=== PATIENT | female | born 1965 | race Caucasian/White ===

== ENCOUNTER → 2018-12-04 17:13 | Outpatient (CLI) | payer OTHER, SELFPAY ==
--- NOTE | 2018-12-04 17:16 | DI.RAD.S_ITS ---
PROCEDURE: XR FOOT LT MIN 3V INDICATIONS: LEFT HEEL PAIN S/P FALL FROM TRUCK ON 09/22/18, GETTING WORS TECHNIQUE: 3 views of the foot were acquired. COMPARISON: None. FINDINGS: Bones: No fractures or dislocations. No suspicious bony lesions. Mild hallux valgus deformity noted. Small bunion noted. Mild midfoot osteoarthritis. Soft tissues: No tibiotalar joint effusion. Achilles tendon appears normal. IMPRESSION: No fracture. No acute osseous lesion. If there are persistent symptoms or clinical suspicion for pathology, then repeat radiographs in 7-10 days or advanced imaging (CT, MRI or bone scan) should be considered for further evaluation. Dictated by: Sintia Sutherland MD, PhD on 12/04/2018 at 18:19 Approved by: Sintia Sutherland MD, PhD on 12/04/2018 at 18:20
== END ==
PROVIDERS: Visit Provider Student in an Organized Health Care Education/Training Program
DX: M79.672 Pain in left foot (principal)
CPT/HCPCS: 73630

== ENCOUNTER → 2020-02-17 13:54 | Outpatient (CLI) | payer OTHER, SELFPAY ==
--- NOTE | 2020-02-17 | DI.RAD.S_ITS ---
PROCEDURE: XR CHEST 2V INDICATIONS: WHEEZING TECHNIQUE: 2 views of the chest were acquired. COMPARISON: None. FINDINGS: Surgical changes and devices: None. Lungs and pleura: Lungs are clear. No pleural effusions or pneumothorax. Mediastinum: Mediastinal contours are normal. Heart size is normal. Bones and chest wall: No suspicious bony abnormalities. Soft tissues appear unremarkable. IMPRESSION: No acute cardiopulmonary disease process. Dictated by: Sintia Sutherland MD, PhD on 02/17/2020 at 16:47 Approved by: Sintia Sutherland MD, PhD on 02/17/2020 at 16:48
== END ==
PROVIDERS: Referring Provider Student in an Organized Health Care Education/Training Program; Visit Provider Student in an Organized Health Care Education/Training Program
DX: R06.2 Wheezing (principal)
CPT/HCPCS: 71046

== ENCOUNTER → 2020-02-21 09:37 | Outpatient (CLI) | payer OTHER, SELFPAY ==
[2020-02-21 09:57] LABS: Add Manual Diff / Slide Review NO; Basophils Absolute Auto 0 /uL (0-100); Basophils Percent Auto 0.5 % (0-2); Eosinophils Absolute Auto 200 /uL (0-450); Hematocrit 38.1 % (36-46); Hemoglobin 12.9 g/dL (12.0-16.0); Lymphocytes Absolute Auto 1100 /uL (1100-4500); Lymphocytes Percent Auto 21.2 % (25-40); Mean Corpuscular HGB Conc 33.7 % (30-36); Mean Corpuscular Volume 83.1 fL (80-100); Monocytes Absolute Auto 300 /uL (0-900); Monocytes Percent Auto 5.5 % (3-14); Neutrophils Absolute Auto 3700 /uL (1500-7000); Neutrophils Percent Auto 69.8 % (50-75); Platelet Count 345 X10^3/uL (150-400); Red Blood Cell Count 4.59 X10^6/uL (4.0-5.2); Red Cell Distribution Width 13.1 % (11.6-14.8); White Blood Cell Count 5.3 X10^3/uL (4.5-11.0)
[2020-02-21 10:12] LABS: Cholesterol 133 mg/dL (140-199); HDL Cholesterol 32 mg/dL (40-60); LDL Cholesterol Calculated 78 mg/dL (<100); Triglycerides 116 mg/dL (35-150)
== END ==
PROVIDERS: Referring Provider Student in an Organized Health Care Education/Training Program; Visit Provider Student in an Organized Health Care Education/Training Program
DX: Z00.00 Encounter for general adult medical examination without abnormal findings (principal); R00.2 Palpitations; R06.02 Shortness of breath
CPT/HCPCS: 36415; 80061; 85025

== ENCOUNTER → 2020-03-06 08:35 | Outpatient (CLI) | payer OTHER, SELFPAY ==
--- NOTE | 2020-03-06 | DI.ECHO.S_ITS ---
[facility]---------+ [facility] +---------+ : : [address] : : : : [id number] : : : : Phone: [phone]+ Echocardiogram Report + + :Name: CASH RUBI Study Date: 03/06/2020 Height: 66 in : :[facility] Weight: 192 lb : : Gender: Female BSA: 2.0 m2 : :: 1965 Age: 55 yrs BP: 124/81 mmHg: :Reason For Study: PALPITATIONS : :Ordering Physician: NAIMA, : :PEDRO Performed By: Merced Vallecillo : :Referring: PEDRO BONILLA : + + Interpretation Summary 1) Normal left ventricular size, thickness, wall motion, and systolic function (EF 55-60%). 2) Normal right ventricular size and function. 3) No significant valvular abnormalities. 4) No prior Echo available for comparison. Procedure: A two-dimensional transthoracic echocardiogram with color flow and Doppler was performed. The study quality was technically adequate. There is no prior echocardiogram noted for this patient. The patient was in sinus bradycardia with heart rates between 51-60 bpm during the exam. Left Ventricle: The left ventricle is normal in size and wall thickness. The ejection fraction is estimated to be 55-60%. Diastolic parameters suggest probable normal left ventricular diastolic function and normal filling pressures. Right Ventricle: The right ventricle is normal in size and function. Atria: Both atria are normal in size. There is no Doppler evidence for an interatrial shunt. Mitral Valve: The mitral valve is normal in structure and function. There is trace mitral regurgitation. Aortic Valve: The aortic valve is trileaflet. The aortic valve opens well. There is no aortic valve stenosis. There is trace aortic regurgitation. Tricuspid Valve: The tricuspid valve is normal in structure and function. There is trace tricuspid regurgitation. Pulmonic Valve: The pulmonic valve leaflets are thin and pliable; valve motion is normal. There is trace pulmonic regurgitation. Great Vessels: The aortic root is normal size. The ascending aorta is at the upper limits of normal in size. The IVC is of normal diameter and collapses greater than 50% with a sniff. This suggests a low right atrial pressure of 3 mm Hg. Pericardium/ Pleura There is no pericardial effusion. There is no pleural effusion. MMode/2D Measurements & Calculations LVIDd: 4.6 cm LVOT diam: 2.2 cm LVIDs: 3.2 cm Ao root diam: 3.5 cm FS: 31.8 % asc Aorta Diam: 3.4 cm EPSS: 0.36 cm Ao Arch Diam (Prox Trans): 2.8 cm IVSd: 0.66 cm LVPWd: 0.73 cm LV harmon. diameter/BSA (cm/m^2): 2.4 LV sys. diameter/BSA (cm/m^2): 1.6 LA A2 area: 16.5 cm2 RA long axis: 4.4 cm LA A4 area: 14.6 cm2 RA area: 13.0 cm2 LA length (vol): 4.3 cm RA vol: 33.0 ml LA vol: 47.4 ml RA : 16.8 ml/m2 LA vol index: 24.1 ml/m2 IVC diam: 1.4 cm RVD1 (basal): 3.5 cm TAPSE: 1.8 cm Doppler Measurements & Calculations Ao V2 max: 111.1 cm/sec LVOT Max Jackson: 90.9 cm/sec Ao V2 mean: 71.7 cm/sec LV V1 max P.3 mmHg Ao max P.9 mmHg LV V1 VTI: 19.8 cm Ao mean P.4 mmHg CHASTITY(I,D): 3.2 cm2 Ao V2 VTI: 24.0 cm CHASTITY(V,D): 3.2 cm2 sev ratio: 0.82 CHASTITY indexed to BSA (cm^2/m^2): 1.6 MV E max jackson: 73.9 cm/sec PA V2 max: 77.3 cm/sec MV A max jackson: 64.6 cm/sec PA V2 mean: 49.6 cm/sec MV E/A: 1.1 PA mean P.2 mmHg Med Peak E' Jackson: 7.8 cm/sec PA pr(Accel): 0.22 mmHg E/E' med: 9.4 Lat Peak E' Jackson: 9.6 cm/sec E/E' lat: 7.7 E/e' average: 8.6 MV dec time: 0.16 sec SV(LVOT): 77.8 ml Reading Physician:10:29 AM
== END ==
PROVIDERS: PCP Student in an Organized Health Care Education/Training Program; Referring Provider Student in an Organized Health Care Education/Training Program; Visit Provider Student in an Organized Health Care Education/Training Program
DX: R00.2 Palpitations (principal); R06.02 Shortness of breath
CPT/HCPCS: 93306

== ENCOUNTER → 2020-11-18 12:52 | Outpatient (CLI) | payer OTHER, SELFPAY ==
--- NOTE | 2020-11-18 12:53 | DI.MG.S_ITS ---
BILATERAL DIGITAL SCREENING MAMMOGRAM 3D/2D WITH CAD: 11/18/2020 CLINICAL: Routine screening. Family history of breast cancer. Comparison is made to exams dated: 11/30/2009 mammogram, 05/28/2011 mammogram, and 11/30/2013 mammogram - [facility]. The tissue of both breasts is heterogeneously dense. This may lower the sensitivity of mammography. Current study was also evaluated with a Computer Aided Detection (CAD) system. There is a possible new 0.5 cm irregular asymmetry in the left breast posterior depth superior region seen on the mediolateral oblique view only. No other significant masses, calcifications, or other findings are seen in either breast. IMPRESSION: INCOMPLETE: NEEDS ADDITIONAL IMAGING EVALUATION The possible new 0.5 cm irregular asymmetry in the left breast is indeterminate. Additional views with possible ultrasound are recommended. This exam was interpreted at Station ID: [id number]. NOTE: For mammograms, a report in lay terms will be sent to the patient. Approximately 15% of breast malignancies will not be visualized mammographically. In the management of a palpable breast mass, a negative mammogram must not discourage biopsy of a clinically suspicious lesion. Electronically Signed By: Erasmo khanna/danilo:11/21/2020 08:00:03 letter sent: Additional Imaging Needed ACR BI-RADS Category 0: Incomplete 3340F
== END ==
PROVIDERS: PCP Student in an Organized Health Care Education/Training Program; Referring Provider Student in an Organized Health Care Education/Training Program; Visit Provider Student in an Organized Health Care Education/Training Program
DX: Z12.31 Encounter for screening mammogram for malignant neoplasm of breast (principal); Z80.3 Family history of malignant neoplasm of breast
CPT/HCPCS: 77063; 77067

== ENCOUNTER → 2020-11-27 13:18 | Outpatient (CLI) | payer OTHER, SELFPAY ==
[2020-11-27 16:24] LABS: COVID19 -Nasal RAPID Negative (Negative)
== END ==
PROVIDERS: PCP Student in an Organized Health Care Education/Training Program; Referring Provider Surgery; Visit Provider Surgery
DX: Z20.822 Contact with and (suspected) exposure to COVID-19 (principal)
CPT/HCPCS: 87635; C9803

== ENCOUNTER 2020-11-28 10:53 | Day surgery (SDC) | payer OTHER, SELFPAY ==
[2020-11-23 13:08] VITALS: BMI 31.6
[2020-11-28] VITALS (8 sets, daily range): BP systolic 95–127; BP diastolic 53–88; PULSE 48–69; RESP 12–16; TEMP 36.1–36.6; O2SAT 97–100; BMI 31.6
--- NOTE | 2020-11-28 | PATH_ITS ---
[facility] Accession Number: [id number] . 01 Material submitted: . back - SOFT TISSUE MASS BACK . 01 Diagnosis: Back, Excision: Mature adipose tissue, consistent with lipoma. MRV 12/01/2020 1638 Local . 01 Electronically signed: . Payam Estrada MD, Dermatopathologist NPI- [id number] . 01 Gross description: . The specimen is received in formalin and labeled with soft tissue mass back. It consists of a 9.5 x 7.3 x 1.8 cm, irregular, unoriented, yellow-burleson, lobulated fibroadipose tissue fragment. The resection margin is not grossly identified. The entire external surface is inked black and the specimen is serially sectioned. Sectioning reveals diffusely yellow-burleson and smooth, unremarkable cut surfaces. No distinguishing features are grossly apparent. Counter Intelligence Technician sections are submitted. . Summary of Sections: A1-A6 = Soft tissue mass back, used equipment sales representative, 1 piece. ([id number]) /MRV 11/29/2020 1029 Local . 01 Pathologist provided ICD-10: D17.9 . 01 CPT . 977987 Performed at: 01 [facility] [address] [place] [address] [address], [place], [place] [id number] MD Jarek Gant MD Phone: [phone]
[2020-11-28] MEDS: ACETAMINOPHEN 325 MG TABLET 975 MG PO (11:51)
[2020-11-28] MEDS: GABAPENTIN 300 MG CAPSULE PO (11:52)
[2020-11-28] MEDS: SCOPOLAMINE 1 PATCH TOP (11:56)
[2020-11-28] MEDS: LACTATED RINGERS 1,000 ML 42 ML IV (12:01)
--- NOTE | 2020-11-28 13:30 | PM.PREOP ---
Pre-operative Note Interval Note History & Physical reviewed/Exam performed by Physician: Yes Changes to H&P: No
[2020-11-28] MEDS: CEFAZOLIN 1 GM VIAL 2 GM IV (14:12)
--- NOTE | 2020-11-28 14:16 | SUR.OPER ---
Lateral on galvez bag on padded OR bed, head on pillow, gel axillary roll in place, bottom leg bent with gel pad under knee to foot, upper leg straight and supported with pillows. Upper arm supported by pillows and secured over bottom arm to padded arm board. Safety belt at hip, tape over blanket lower legs.
[2020-11-28] MEDS: BUPIVACAINE 0.25% (PF) VIAL 30 ML INJ (14:21)
--- NOTE | 2020-11-28 14:47 | PM.OP.1 ---
Operative Date/Time/Diagnoses Date of procedure: 11/28/20 Time of procedure: 14:47 Pre-op diagnosis: Soft tissue mass of back Post-op diagnosis: same Procedure & Clinicians Procedure: Excision of soft tissue mass Same procedure as scheduled: Yes Indications: Painful superficial soft tissue mass left upper back Surgeon: Chino Nunes Anesthesia Type: General Operative Notes Findings: Consistent with lipoma Specimen(s): other (Soft tissue mass back) Estimated Blood Loss (mL): 10 Procedure in detail: Patient was brought to the operating room placed supine on the table. Bilateral lower extremity compression devices were applied. She received 2 g Ancef prior to skin incision. Anesthesia was induced she was intubated with an LMA. She was then positioned into the right lateral decubitus position appropriately padded with an axillary roll. She was prepped and draped in sterile fashion. Time-out was performed. 1% lidocaine was infiltrated into the skin over the area of concern on the left upper back.. The soft tissue mass was readily palpable. Incision over the soft tissue mass was made with a knife and the subcutaneous tissues were divided. The mass was encountered it was grasped and then it was dissected out circumferentially. Mass was then removed in its entirety and passed off the field as specimen, its appearance was consistent with a lipoma of approximately 10 cm.. Hemostasis was achieved. The subcutaneous tissue was closed with Vicryl suture and the skin closed with Monocryl followed by Dermabond. Complications: none Post-operative Condition: stable Disposition: same day surgery
[2020-11-28] MEDS: ONDANSETRON 4 MG/2 ML INJ IV (14:54)
== END 2020-11-28 16:07 | disposition home or self-care (01) ==
PROVIDERS: PCP Student in an Organized Health Care Education/Training Program; Referring Provider Surgery; Visit Provider Surgery
PROC: (CPT 21931; principal; 2020-11-28 12:15)
DX: D17.1 Benign lipomatous neoplasm of skin and subcutaneous tissue of trunk (principal); E66.9 Obesity, unspecified; K21.9 Gastro-esophageal reflux disease without esophagitis; Z68.34 Body mass index [BMI] 34.0-34.9, adult
CPT/HCPCS: 21931; 82962; J0690; J1100; J1885; J2250; J2405; J2704

== ENCOUNTER → 2020-12-06 10:06 | Outpatient (CLI) | payer OTHER, SELFPAY ==
[2020-12-06 12:18] LABS: COVID19 -Nasal RAPID Negative (Negative)
== END ==
PROVIDERS: PCP Student in an Organized Health Care Education/Training Program; Referring Provider Physician Assistant; Visit Provider Physician Assistant
DX: Z01.812 Encounter for preprocedural laboratory examination (principal); Z20.822 Contact with and (suspected) exposure to COVID-19
CPT/HCPCS: 87635

== ENCOUNTER → 2020-12-07 12:58 | Outpatient (CLI) | payer OTHER, SELFPAY ==
--- NOTE | 2020-12-07 12:59 | DI.MG.S_ITS ---
UNILATERAL LEFT DIGITAL DIAGNOSTIC MAMMOGRAM 3D/2D WITH ADDITIONAL VIEWS: 12/07/2020 CLINICAL: Additional evaluation requested from prior study. Comparison is made to exams dated: 11/18/2020 mammogram - [facility], 11/30/2013 mammogram, and 05/28/2011 mammogram - [facility]. The tissue of left breast is heterogeneously dense. This may lower the sensitivity of mammography. There is a possible new 0.5 cm irregular low density asymmetry with an indistinct margin in the left breast posterior depth superolateral region seen on the mediolateral oblique view only. This is not seen in additional views. No other significant masses or calcifications are seen in the breast. IMPRESSION: INCOMPLETE: NEEDS ADDITIONAL IMAGING EVALUATION The possible new 0.5 cm irregular low density asymmetry in the left breast remains indeterminate. An ultrasound is recommended. This was performed immediately following this exam. This exam was interpreted at Station ID: [id number]. NOTE: For mammograms, a report in lay terms will be sent to the patient. Approximately 15% of breast malignancies will not be visualized mammographically. In the management of a palpable breast mass, a negative mammogram must not discourage biopsy of a clinically suspicious lesion. Electronically Signed By: Anh ulrich/:12/07/2020 14:10:06 ACR BI-RADS Category 0: Incomplete 3340F
--- NOTE | 2020-12-07 12:59 | DI.US.S_ITS ---
ULTRASOUND OF LEFT BREAST: 12/07/2020 CLINICAL: Patient returns today to evaluate a focal asymmetry in the left breast. Comparison is made to exams dated: 12/07/2020 mammogram, 11/18/2020 mammogram - [facility], 11/30/2013 mammogram, 05/28/2011 mammogram, and 11/30/2009 mammogram - [facility]. Color flow and real-time ultrasound of the left breast were performed. Woods scale images of the real-time examination were reviewed. There is a 0.4 cm x 0.4 cm x 0.3 cm round cyst in the left breast at 2 o'clock posterior depth 8 cm from the nipple. Color flow imaging demonstrates that there is no vascularity present. It is uncertain whether this corresponds to the indistinct asymmetry seen on MLO view only. IMPRESSION: PROBABLY BENIGN The 0.4 cm x 0.4 cm x 0.3 cm round cyst in the left breast most likely is a simple or minimally complicated cyst and is probably benign. A follow-up left mammogram and an ultrasound in 6 months is recommended to demonstrate stability of mammographic and possible separate sonographic findings. Findings and recommendations were conveyed to the patient at time of exam. This exam was interpreted at Station ID: [id number]. Electronically Signed By: Anh ulrich/:12/07/2020 14:13:54 letter sent: Followup Recommended Ultrasound BI-RADS: 3 Probably benign
== END ==
PROVIDERS: PCP Student in an Organized Health Care Education/Training Program; Referring Provider Student in an Organized Health Care Education/Training Program; Visit Provider Student in an Organized Health Care Education/Training Program
DX: R92.8 Other abnormal and inconclusive findings on diagnostic imaging of breast (principal); N60.02 Solitary cyst of left breast
CPT/HCPCS: 76642; 77065; G0279

== ENCOUNTER 2020-12-08 14:46 | Day surgery (SDC) | payer OTHER, SELFPAY ==
--- NOTE | 2020-12-08 12:34 | PM.HP.1 ---
History of Present Illness History of Present Illness Date Patient Seen: 12/08/20 Chief complaint: SDC Narrative: 55 Years Old Female seen today for consideration of a screening colonoscopy. There have been no lower GI symptoms suggesting disease such as change in bowel habits, bleeding, abdominal pain or anemia. Mother had colon cancer. Overall health issues have been stable, including no major cardiac events for at least 6 weeks. Past Medical History: Hx of Abnormal Pap Smear(Fibroids) LIPOMA Dyspareunia, Superficial CANCER, SKIN, HX OF SEBORRHEIC KERATOSIS VISION COMPLAINT, BLURRED Dry eyes Past Surgical History: Hysterectomy- Partial- Patient has ovaries, 2008 Tonsillectomy child Skin cancer removal x2 Family History: Alcoholism- Mother / Father Family Hx Breast Cancer - Mother Hypertension, colon cancer- Mother Pancreatic Cancer - Father Social History: Marital Status: Children: 2 Occupation: House Household Members: Spouse (Gary Mejia) Education: High School 0 alcoholic drinks per day. Patient History Medical History (Updated 11/23/20 @ 13:12 by Doris Shine RN) BCC (basal cell carcinoma) Tinnitus (2005) Surgical History (Updated 11/23/20 @ 13:12 by Doris Shine RN) History of episiotomy History of tonsillectomy Status post hysterectomy (~2006) Family & Social History Family History Father Cancer Grandfather Heart disease Mother Age: 78 Bronchitis Hypertension Breast cancer Cancer Grandfather Heart disease Social History: household members spouse Tobacco & Substance use: Smoking Status Never smoker alcohol intake never Substance Use Type does not use Meds Home Medications and Allergies Home Medications Medication Instructions Recorded Confirmed Type multivitamin 1 tab PO DAILY 11/01/20 12/08/20 History acetaminophen 325 mg capsule 650 mg PO QID PRN #60 cap 11/28/20 12/08/20 Rx (Tylenol) ibuprofen 200 mg tablet 400 mg PO Q6H #60 tab 11/28/20 12/08/20 Rx Allergies Allergy/AdvReac Type Severity Reaction Status Date / Time procaine [From Novocain] Allergy Intermediate Palpitation Verified 12/08/20 15:49 s Influenza Virus Vaccines Allergy Unknown Verified 11/28/20 11:16 [INFLUENZA VIRUS VACCINES] morphine [MORPHINE] Allergy Unknown Verified 11/28/20 11:16 peanut [PEANUT] Allergy Unknown Verified 11/28/20 11:16 Review of Systems Review of Systems Narrative: See HPI. Exam Narrative Exam Narrative: GENERAL: Alert and oriented, appearing stated age and in no acute distress. HEENT: Head normocephalic/atraumatic. LUNGS: Clear to ausculation bilaterally, no wheezes, rhonchi or rales. CV: Normal S1 and S2 with regular rate and rhythm, no audible murmurs, rubs or gallops. ABDOMEN: Soft, non-tender, non-distended, no organomegaly. Positive bowel sounds. EXTREMITIES: No clubbing, cyanosis, or edema. NEURO: Cranial nerves II through XII grossly intact, no focal deficits. PSYCH: Alert and oriented x 3. SKIN: No concerning lesions. Assessment & Plan Assessment & Plan narrative: 1. Family history of colon cancer 2. Screening for colon cancer Plan for colonoscopy. The nature and character of the procedure as well as anticipated results were discussed. The possibility of not completing the procedure was also discussed. Possible complications including aspiration pneumonia, bleeding, perforation and reaction to medications either for sedation or preparation and missed lesions were discussed. Questions were answered and proceeding to the colonoscopy was elected. Informed consent signed. I sincerely appreciate the referral allowing me to participate in this patient's care. Please contact me with any questions or concerns.
--- NOTE | 2020-12-08 12:37 | PM.OP.ENDO ---
Operative Date/Time/Diagnoses Date of procedure: 12/08/20 Procedure Notes SCOAP/Timeout: 4:49 p.m. Procedure in detail: ENDOSCOPIST: Cyndi Lantigua MD Sedation RN: Adriana Troy RN Sedation start time: 4:50 p.m. Sedation end time: 5:27 p.m. PROCEDURE: Colonoscopy INDICATIONS: 1. Family history of colon cancer 2. Screening for colon cancer MEDICATION: Levsin 0.125 mg sublingual, incremental doses of Versed and fentanyl until appropriate level sedation achieved. ASA CLASS: 1 CECAL WITHDRAWAL TIME: 11 minutes COMPLICATIONS: None. EXTENT OF PROCEDURE: Cecum. QUALITY OF PREP: Good with portions of liquid stool. PROCEDURE: Prior to insertion of the colonoscope, a digital rectal examination was accomplished with circumferential palpation of the distal rectal mucosa without significant findings being noted. The high-definition colonoscope was passed into the rectum in the usual fashion and advanced over to the cecum without difficulty. The ileocecal valve, appendiceal stoma, and medial wall all could be inspected and no abnormalities were seen. ASCENDING COLON: As the colonoscope was withdrawn, care was taken to expose and inspect the haustral folds and no abnormalities were seen. HEPATIC FLEXURE: Normal, no polyps, diverticula or other abnormalities. TRANSVERSE COLON: Normal, no polyps, diverticula or other abnormalities. DESCENDING COLON: Normal, no polyps, diverticula or other abnormalities. SIGMOID COLON: Normal, no polyps, diverticula or other abnormalities. RECTUM: Normal. J maneuver was produced. There was no significant perianal disease. The J maneuver was broken. The remainder of the rectum was inspected and there was no external hemorrhoid disease. The scope was withdrawn. IMPRESSION: 1. Normal colonoscopy PLAN: 1. Repeat colonoscopy in 10 years. The possibility of a missed lesion including a malignancy has been discussed with the patient previously. Potential alarm symptoms have been discussed and should be reported immediately.
[2020-12-08 15:56] VITALS: BP 107/76; PULSE 78; RESP 16; TEMP 36.4; O2SAT 97; BMI 30.7
[2020-12-08] MEDS: LACTATED RINGERS 1,000 ML 200 ML IV (16:05)
--- NOTE | 2020-12-08 16:10 | SUR.PREOP ---
Pt declined hycosamine due to worry about taking new medication and history of reactions to many medications.
[2020-12-08] MEDS: fentaNYL 250 MCG/5 ML INJ IV (17:03)
[2020-12-08] MEDS: MIDAZOLAM 5 MG/5 ML VIAL IV (17:07)
[2020-12-08 17:27] VITALS: BP 105/62; PULSE 80; RESP 14; TEMP 36.7
[2020-12-08 17:32] VITALS: BP 106/66; PULSE 66; RESP 14; O2SAT 99
[2020-12-08 17:37] VITALS: BP 113/73; PULSE 66; RESP 16; O2SAT 100
[2020-12-08 17:49] VITALS: BP 107/72; PULSE 74; RESP 16
[2020-12-08 17:54] VITALS: BP 116/72; PULSE 64; RESP 16; TEMP 36.7; O2SAT 100
== END 2020-12-08 18:13 | disposition home or self-care (01) ==
PROVIDERS: PCP Student in an Organized Health Care Education/Training Program; Referring Provider Student in an Organized Health Care Education/Training Program; Visit Provider Student in an Organized Health Care Education/Training Program
PROC: 0DJD8ZZ Inspection of Lower Intestinal Tract, Via Natural or Artificial Opening Endoscopic (ICD-10-PCS; CPT 45378; principal; 2020-12-08 16:00)
DX: Z12.11 Encounter for screening for malignant neoplasm of colon (principal); Z80.0 Family history of malignant neoplasm of digestive organs
CPT/HCPCS: 45378; J2250; J3010

== ENCOUNTER → 2021-07-18 13:49 | Outpatient (CLI) | payer OTHER, SELFPAY ==
--- NOTE | 2021-07-18 | DI.US.S_ITS ---
LIMITED ULTRASOUND OF LEFT BREAST: 07/18/2021 CLINICAL: Short term follow up for the left breast. Comparison is made to exams dated: 07/18/2021 mammogram, 12/07/2020 ultrasound, 12/07/2020 mammogram, and 11/18/[address] mammogram - [facility]. Color flow and real-time ultrasound of the left breast 2-3 o'clock region were performed. Woods scale images of the real-time examination were reviewed. There is a stable 0.5 cm x 0.4 cm x 0.4 cm oval cyst in the left breast at 2 o'clock posterior depth 8 cm from the nipple. This oval cyst is hypoechoic. This correlates with mammography findings. Color flow imaging demonstrates that there is no vascularity present. IMPRESSION: PROBABLY BENIGN Stable 0.5 cm complicated cyst in the left breast is probably benign. A follow-up mammogram and an ultrasound in 6 months is recommended to demonstrate stability. Patient will also be due for right breast mammogram at that time. Exam findings were conveyed to the patient. This exam was interpreted at Station ID: [id number]. Electronically Signed By: Jc Germain M.D. slc/:07/18/2021 15:51:44 letter sent: Followup Recommended Ultrasound BI-RADS: 3 Probably benign
--- NOTE | 2021-07-18 | DI.MG.S_ITS ---
UNILATERAL LEFT DIGITAL DIAGNOSTIC MAMMOGRAM 3D/2D: 07/18/2021 CLINICAL: Short term follow up. Comparison is made to exams dated: 12/07/2020 mammogram, 11/18/2020 mammogram - [facility], 11/30/2013 mammogram, 05/28/2011 mammogram - [facility], and 12/07/2020 ultrasound - [facility]. The tissue of left breast is heterogeneously dense. This may lower the sensitivity of mammography. There is an asymmetry in the left breast posterior depth superior region seen on the mediolateral oblique view only. This is not significantly changed. No other significant masses or calcifications are seen in the breast. IMPRESSION: INCOMPLETE: NEEDS ADDITIONAL IMAGING EVALUATION The asymmetry in the left breast is indeterminate. A targeted ultrasound is recommended and will immediately follow. This exam was interpreted at Station ID: [id number]. NOTE: For mammograms, a report in lay terms will be sent to the patient. Approximately 15% of breast malignancies will not be visualized mammographically. In the management of a palpable breast mass, a negative mammogram must not discourage biopsy of a clinically suspicious lesion. Electronically Signed By: Jc Germain M.D. slc/:07/18/2021 14:46:15 ACR BI-RADS Category 0: Incomplete 3340F
== END ==
PROVIDERS: PCP Student in an Organized Health Care Education/Training Program; Referring Provider Student in an Organized Health Care Education/Training Program; Visit Provider Student in an Organized Health Care Education/Training Program
DX: R92.8 Other abnormal and inconclusive findings on diagnostic imaging of breast (principal); N60.02 Solitary cyst of left breast
CPT/HCPCS: 76642; 77065; G0279

== ENCOUNTER → 2022-01-14 09:04 | Outpatient (CLI) | payer OTHER, SELFPAY ==
--- NOTE | 2022-01-14 | DI.MG.S_ITS ---
BILATERAL DIGITAL DIAGNOSTIC MAMMOGRAM 3D/2D: 01/14/2022 CLINICAL: Short term follow up, due bilateral. Family history of breast cancer. Comparison is made to exams dated: 07/18/2021 mammogram, 12/07/2020 mammogram, 11/18/2020 mammogram - [facility], 11/30/2013 mammogram - [facility], and 07/18/2021 ultrasound - [facility]. Both breasts are heterogeneously dense, which may obscure small masses (category c / 51-75% glandular tissue). There is an asymmetry in the left breast posterior depth superior region seen on the mediolateral oblique view only. This is not significantly changed. No other significant masses, calcifications, or other findings are seen in either breast. IMPRESSION: INCOMPLETE: NEEDS ADDITIONAL IMAGING EVALUATION The asymmetry in the left breast is indeterminate. A targeted ultrasound is recommended and will immediately follow. Based on Tyrer-Cuzick model (a risk assessment model), the patient's lifetime risk is 23.2% and her 10 year risk is 7.3%. If a patient has an elevated risk, a more comprehensive evaluation should be considered and/or a referral to a genetic counselor. The [place] [employer], [place] [employer], and NCCN Guidelines advise the consideration of Breast MRI as an adjunct to screening mammography in patients whose Lifetime risk to develop breast cancer is 20% or higher. This exam was interpreted at Station ID: [id number]. NOTE: For mammograms, a report in lay terms will be sent to the patient. Approximately 15% of breast malignancies will not be visualized mammographically. In the management of a palpable breast mass, a negative mammogram must not discourage biopsy of a clinically suspicious lesion. Electronically Signed By: Jc Germain M.D. [facility] [place]/:01/14/2022 09:59:33 ACR BI-RADS Category 0: Incomplete 3340F
--- NOTE | 2022-01-14 | DI.US.S_ITS ---
LIMITED ULTRASOUND OF LEFT BREAST: 01/14/2022 CLINICAL: 6 month follow-up of cysts. Comparison is made to exams dated: 01/14/2022 mammogram, 07/18/2021 ultrasound, 07/18/2021 mammogram, 12/07/2020 ultrasound, 12/07/2020 mammogram, and 11/18/2020 mammogram - [facility]. Color flow and real-time ultrasound of the left breast 2-3 o'clock region were performed. Woods scale images of the real-time examination were reviewed. There is a stable 0.5 cm x 0.4 cm x 0.4 cm oval cyst in the left breast at 2 o'clock posterior depth 8 cm from the nipple. This oval cyst is hypoechoic. This correlates with mammography findings. Color flow imaging demonstrates that there is no vascularity present. IMPRESSION: PROBABLY BENIGN The stable 0.5 cm complicated cyst in the left breast is consistent is probably benign. A follow-up mammogram and an ultrasound in 12 months is recommended to demonstrate long-term stability. Exam findings were conveyed to the patient. Patient is advised to monitor for significant change. This exam was interpreted at Station ID: [id number]. Electronically Signed By: Jc Germain M.D. slc/:01/14/2022 11:06:29 letter sent: Followup Recommended Ultrasound BI-RADS: 3 Probably benign
== END ==
PROVIDERS: PCP Student in an Organized Health Care Education/Training Program; Referring Provider Internal Medicine; Visit Provider Internal Medicine
DX: R92.8 Other abnormal and inconclusive findings on diagnostic imaging of breast (principal); N60.02 Solitary cyst of left breast
CPT/HCPCS: 76642; 77066; G0279

== ENCOUNTER → 2023-02-21 11:52 | Outpatient (CLI) | payer OTHER, SELFPAY ==
--- NOTE | 2023-02-21 | DI.US.S_ITS ---
ULTRASOUND OF LEFT BREAST: 02/21/2023 CLINICAL: Patient returns today to evaluate a focal asymmetry in the left breast. Comparison is made to exams dated: 02/21/2023 mammogram, 01/14/2022 ultrasound, 01/14/2022 mammogram, 07/18/2021 ultrasound, 07/18/2021 mammogram, and 12/07/2020 ultrasound - [facility]. Color flow and real-time ultrasound of the left breast were performed. Woods scale images of the real-time examination were reviewed. There is a 0.6 cm x 0.3 cm x 0.6 cm oval cyst in the left breast at 2 o'clock posterior depth 8 cm from the nipple. This oval cyst is hypoechoic. This abnormality is not significantly changed and correlates with mammography findings. Color flow imaging demonstrates that there is no vascularity present. IMPRESSION: PROBABLY BENIGN The 0.6 cm x 0.3 cm x 0.6 cm oval cyst in the left breast is consistent with a complicated cyst and is probably benign. A follow-up bilateral mammogram and a left ultrasound in 12 months is recommended to document senior care stability. Findings and recommendations were conveyed to the patient during today's evaluation. This exam was interpreted at Station ID: [id number]. Electronically Signed By: Erasmo Linares M.D. aty/:02/21/2023 14:51:07 letter sent: Followup Recommended Ultrasound BI-RADS: 3 Probably benign
--- NOTE | 2023-02-21 | DI.MG.S_ITS ---
BILATERAL DIGITAL DIAGNOSTIC MAMMOGRAM 3D/2D: 02/21/2023 CLINICAL: Patient returns for a 12 month follow up of the left breast, due for bilateral exam. Comparison is made to exams dated: 01/14/2022 mammogram, 07/18/2021 mammogram, 12/07/2020 mammogram, and 11/18/2020 mammogram - [facility]. Both breasts are heterogeneously dense, which may obscure small masses (category c / 51-75% glandular tissue). There is an asymmetry in the left breast posterior depth superior region seen on the mediolateral oblique view only. This is not significantly changed. No other significant masses, calcifications, or other findings are seen in either breast. IMPRESSION: INCOMPLETE: NEEDS ADDITIONAL IMAGING EVALUATION The asymmetry in the left breast is indeterminate. An ultrasound is recommended for further evaluation and is scheduled to immediately follow this examination. Based on Tyrer-Cuzick model (a risk assessment model), the patient's lifetime risk is 22.9% and her 10 year risk is 7.7%. If a patient has an elevated risk, a more comprehensive evaluation should be considered and/or a referral to a genetic counselor. The [place] [employer], [employer], and NCCN Guidelines advise the consideration of Breast MRI as an adjunct to screening mammography in patients whose Lifetime risk to develop breast cancer is 20% or higher. This exam was interpreted at Station ID: [id number]. NOTE: For mammograms, a report in lay terms will be sent to the patient. Approximately 15% of breast malignancies will not be visualized mammographically. In the management of a palpable breast mass, a negative mammogram must not discourage biopsy of a clinically suspicious lesion. Electronically Signed By: Erasmo Linares M.D. aty/:02/21/2023 14:49:13 ACR BI-RADS Category 0: Incomplete [id number]
== END ==
PROVIDERS: PCP Registered Nurse; Referring Provider Registered Nurse; Visit Provider Registered Nurse
DX: R92.8 Other abnormal and inconclusive findings on diagnostic imaging of breast (principal); N64.89 Other specified disorders of breast; N60.02 Solitary cyst of left breast
CPT/HCPCS: 76642; 77066; G0279

== ENCOUNTER → 2024-02-24 13:01 | Outpatient (CLI) | payer OTHER, SELFPAY ==
--- NOTE | 2024-02-24 | DI.MG.S_ITS ---
BILATERAL DIGITAL DIAGNOSTIC MAMMOGRAM 3D/2D SHORT-TERM FOLLOW-UP: 02/24/2024 CLINICAL: Short term follow up of the left breast, due for bilateral imaging. Comparison is made to exams dated: 02/21/2023 mammogram, 01/14/2022 mammogram, 07/18/2021 mammogram, and 12/07/2020 mammogram - [facility]. The breasts are heterogeneously dense, which may obscure small masses (category c / 51-75% glandular tissue). There is an asymmetry in the left breast posterior depth superior region seen on the mediolateral oblique view only. This is less prominent and decreased in size. No other significant masses, calcifications, or other findings are seen in either breast. Mammograms are otherwise stable. IMPRESSION: INCOMPLETE: NEED ADDITIONAL IMAGING EVALUATION Bilateral mammograms are stable. The asymmetry in the left breast is smaller and less prominent. This has demontrated two years of stability and is therefore benign. An ultrasound is recommended for possible separate finding. This was performed immediately following this exam. . Based on Tyrer-Cuzick model (a risk assessment model), the patient's lifetime risk is 22.7% and her 10 year risk is 8.1%. If a patient has an elevated risk, a more comprehensive evaluation should be considered and/or a referral to a genetic counselor. The [place] [employer], [employer], and NCCN Guidelines advise the consideration of Breast MRI as an adjunct to screening mammography in patients whose Lifetime risk to develop breast cancer is 20% or higher. This exam was interpreted at Station ID: [id number]. NOTE: For mammograms, a report in lay terms will be sent to the patient. Approximately 15% of breast malignancies will not be visualized mammographically. In the management of a palpable breast mass, a negative mammogram must not discourage biopsy of a clinically suspicious lesion. Electronically Signed By: Anh ulrich/:02/24/2024 14:07:56 ACR BI-RADS Category 0: Incomplete: Need Additional Imaging Evaluation
--- NOTE | 2024-02-24 | DI.US.S_ITS ---
LIMITED ULTRASOUND OF LEFT BREAST: 02/24/2024 CLINICAL: Patient returns today to evaluate a focal asymmetry in the left breast. Comparison is made to exams dated: 02/24/2024 mammogram, 02/21/2023 ultrasound, 02/21/2023 mammogram, 01/14/2022 ultrasound, 01/14/2022 mammogram, and 07/18/2021 ultrasound - [facility]. Ultrasound of the left breast 2 o'clock region was performed. Woods scale images of the real-time examination were reviewed. There is a stable 0.4 x 0.3 x 0.2 cm oval cyst in the left breast at 2 o'clock posterior depth 8 cm from the nipple. This oval cyst is hypoechoic. This correlates with mammography findings. Color flow imaging demonstrates that there is no vascularity present. IMPRESSION: BENIGN There is no sonographic evidence of malignancy. The 0.4 cm cyst in the left breast is consistent with a complicated cyst, has demontrated two years of stability and is therefore benign. Return to annual mammogram screening schedule is recommended. Findings and recommendations were conveyed to the patient at time of exam. This exam was interpreted at Station ID: [id number]. Electronically Signed By: Anh ulrich/:02/24/2024 14:31:55 letter sent: Normal Exam ACR BI-RADS Category 2: Benign
--- NOTE | 2024-02-24 13:10 | DI.RAD.S_ITS ---
PROCEDURE: XR HAND RT MIN 3V INDICATIONS: polyarthralgia TECHNIQUE: 3 views of the hand(s) acquired. COMPARISON: None. FINDINGS: Bones: No fractures or dislocations. Carpal bones are normally aligned. No suspicious bony lesions. Scattered IP degenerative narrowing. No distinct erosions. Very minimal periarticular osteophytes. Soft tissues: No suspicious soft tissue calcifications. IMPRESSION: Scattered IP narrowing consistent with arthritic change Dictated by: Halina Castillo M.D. on 02/24/2024 at 14:45 Approved by: Halina Castillo M.D. on 02/24/2024 at 14:47
--- NOTE | 2024-02-24 13:10 | DI.RAD.S_ITS ---
PROCEDURE: XR HAND LT MIN 3V INDICATIONS: polyarthralgia TECHNIQUE: 3 views of the hand(s) acquired. COMPARISON: [facility], CR, XR HAND RT MIN 3V, 02/24/2024, 12:22. FINDINGS: Bones: No fractures or dislocations. Carpal bones are normally aligned. No suspicious bony lesions. Scattered IP degenerative narrowing. Very minimal periarticular osteophytes. No distinct erosions. Soft tissues: No suspicious soft tissue calcifications. IMPRESSION: Scattered arthritic changes without erosions. Dictated by: Halina Castillo M.D. on 02/24/2024 at 14:48 Approved by: Halina Castillo M.D. on 02/24/2024 at 14:48
--- NOTE | 2024-02-24 13:10 | DI.RAD.S_ITS ---
PROCEDURE: XR ELBOW RT MIN 3V INDICATIONS: polyarthralgia TECHNIQUE: 3 views of the elbow were acquired. COMPARISON: None. FINDINGS: Bones: No fractures or dislocations. No suspicious bony lesions. Soft tissues: No elbow joint effusion. No suspicious soft tissue calcifications. IMPRESSION: No visualized acute fracture or dislocation. However, if clinical concern and/or pain persist, short interval imaging followup in 7-10 days is recommended, as occult injury cannot be definitively excluded. Dictated by: Halina Castillo M.D. on 02/24/2024 at 14:47 Approved by: Halina Castillo M.D. on 02/24/2024 at 14:48
== END ==
PROVIDERS: PCP Registered Nurse; Referring Provider Registered Nurse; Visit Provider Registered Nurse
DX: R92.333 Mammographic heterogeneous density, bilateral breasts (principal); R92.8 Other abnormal and inconclusive findings on diagnostic imaging of breast; N60.02 Solitary cyst of left breast; M25.50 Pain in unspecified joint
CPT/HCPCS: 73080; 73130; 76642; 77066; G0279

== ENCOUNTER → 2025-02-25 13:02 | Outpatient (CLI) | payer OTHER, SELFPAY ==
--- NOTE | 2025-02-25 13:04 | DI.MG.S_ITS ---
MM screening mammo BI: 02/25/2025. BI-RADS: 0 CLINICAL: 59-year old female for bilateral screening mammogram. Tyrer-Cuzick lifetime risk of 28.1%. Current reported family history of breast cancer: mother, sister, second sister's daughter and maternal aunt. PRIOR EXAMS 02/24/2024, 02/21/2023, 01/14/2022, 07/18/2021. MAMMOGRAPHY TECHNIQUE: 2D and 3D (tomosynthesis) digital mammographic views obtained, with additional images as needed for full coverage. Current study was also evaluated with a Computer Aided Detection (CAD) system. DENSITY C. The breasts are heterogeneously dense, which may obscure small masses. MAMMOGRAPHY FINDINGS Right: No suspicious mass, asymmetry, microcalcification, or other abnormality seen. Left: Lower Inner at 7:00, Middle depth: Focal asymmetry needing additional imaging evaluation. Left: Central, Anterior depth: Focal asymmetry needing additional imaging evaluation. IMPRESSION: Right * No evidence of malignancy. Left (Asymmetry): Lower Inner at 7:00, Middle depth * Incomplete - focal asymmetry needing additional imaging evaluation. Left (Asymmetry): Central, Anterior depth * Incomplete - focal asymmetry needing additional imaging evaluation. RECOMMENDATIONS Left * Further evaluation with diagnostic mammography and diagnostic ultrasound. Ultrasound to be performed only if needed. OVERALL ASSESSMENT CATEGORY BI-RADS-0: Incomplete - Need Additional Imaging Evaluation. ELECTRONICALLY SIGNED: Erasmo Linares M.D. on 02/25/2025 at 11:06:27 PM PT Interpreting Station ID: [id number]
== END ==
LOC: MAMMO 13:04
PROVIDERS: PCP Registered Nurse; Referring Provider Registered Nurse; Visit Provider Registered Nurse
DX: Z12.31 Encounter for screening mammogram for malignant neoplasm of breast (principal); R92.8 Other abnormal and inconclusive findings on diagnostic imaging of breast; R92.333 Mammographic heterogeneous density, bilateral breasts; Z80.3 Family history of malignant neoplasm of breast
CPT/HCPCS: 77063; 77067

== ENCOUNTER → 2025-04-04 11:08 | Outpatient (CLI) | payer OTHER, SELFPAY ==
--- NOTE | 2025-04-04 11:09 | DI.MG.S_ITS ---
US breast LT limited, MM diagnostic mammo unilat LT: 04/04/2025 BI-RADS: 3 CLINICAL: 60-year old female for left diagnostic mammogram and left diagnostic breast ultrasound that is a recall from screening on 02/25/2025. Tyrer-Cuzick lifetime risk of 27.5%. Current reported family history of breast cancer: mother, sister, second sister's daughter and maternal aunt. PRIOR EXAMS 02/25/2025, 02/24/2024, 02/21/2023, 01/14/2022, 07/18/2021, 12/07/2020, 11/18/2020. MAMMOGRAPHY TECHNIQUE: 2D and 3D (tomosynthesis) digital mammographic views obtained, with additional images as needed for full coverage. Current study was also evaluated with a Computer Aided Detection (CAD) system. ULTRASOUND TECHNIQUE Real-time hermosillo scale and color doppler imaging of the area of clinical interest was performed with image documentation. Left targeted breast ultrasound of the area of clinical interest and the axilla was performed with image documentation. DENSITY Left: C. The breast is heterogeneously dense, which may obscure small masses. MAMMOGRAPHY FINDINGS Left (finding-1): Upper at 12:00, Anterior depth: There is a possible focal asymmetry present. Left (finding-2): Lower Inner Quadrant, Anterior depth, measuring 1.1cm. Previous report: at 7:00: Correlating with findings on screening mammogram there is a circumscribed, oval, equal-density mass present. Left (finding-3): Inner Central, Middle depth, measuring 0.9cm. Previous report: Central: Correlating with findings on screening mammogram there is a circumscribed, oval, equal-density mass present. ULTRASOUND FINDINGS Left: Lower Inner at 7:00, 2 cm from nipple, measuring 0.3 x 0.3 x 0.3 cm: There is a complicated cyst present. This is an incidental finding. Left (finding-2): Lower Inner at 8:00, 4 cm from nipple, measuring 1 x 0.7 x 0.9 cm: Correlating with findings on mammogram, there is a simple anechoic cyst showing posterior acoustic enhancement. Doppler shows no vascularity. Left (finding-3): Upper Inner at 10:00, 3 cm from nipple, measuring 1.1 x 0.6 x 1.2 cm: Correlating with findings on mammogram, there is a simple anechoic cyst showing posterior acoustic enhancement. Doppler shows no vascularity. Left (finding-1): Upper at 12:00, 3 cm from nipple: There is no sonographic abnormality to account for imaging concern on mammography. IMPRESSION: Left (Complicated Cyst): Lower Inner at 7:00, 2 cm from nipple, measuring 0.3 x 0.3 x 0.3 cm * Probably Benign. Left: Upper at 12:00, Anterior depth * Probably Benign. RECOMMENDATIONS Left: Upper at 12:00, Anterior depth * Six month followup with diagnostic mammography. Left: Lower Inner at 7:00, 2 cm from nipple * Six month followup with diagnostic ultrasound. COMMENTS: Findings and recommendations were conveyed to the patient during today's evaluation. In addition, this patient has an elevated lifetime risk for breast cancer of over 20%. Recommend consideration for annual screening breast MRI as an adjunct to screening mammography. The patient also reports a possible allergy to gadolinium; recommend clinical correlation and discussion of possible pre-medication for MRI, if necessary. OVERALL ASSESSMENT CATEGORY BI-RADS-3: Probably Benign. ELECTRONICALLY SIGNED: Lisa Ontiveros M.D. on 04/04/2025 at 03:33:08 PM PT Interpreting Station ID: [id number]
== END ==
PROVIDERS: PCP Registered Nurse; Referring Provider Registered Nurse; Visit Provider Registered Nurse
DX: R92.8 Other abnormal and inconclusive findings on diagnostic imaging of breast (principal); R92.332 Mammographic heterogeneous density, left breast; N60.02 Solitary cyst of left breast; Z80.3 Family history of malignant neoplasm of breast
CPT/HCPCS: 76642; 77065; G0279